=== PATIENT | female | born 2000 | race Caucasian/White ===

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

== ENCOUNTER 2024-04-08 10:55 | Emergency (ER) | payer BC, OTHER ==
[2024-04-08 11:02] VITALS: BP 110/72; PULSE 95; RESP 18; TEMP 98.5; BMI 30.7
[2024-04-08] MEDS ORDERED: ONDANSETRON 4 MG/2 ML VIAL ONE (11:24)
[2024-04-08] MEDS: SODIUM CHLORIDE 0.9% 500 ML INFUS.BAG IV ONE (11:46)
[2024-04-08] MEDS: ONDANSETRON 4 MG/2 ML VIAL IVPUSH ONE (11:46)
[2024-04-08 12:11] LABS: BASO % 0.3 % (0-2.0); HEMATOCRIT 35.5 % (32.4-45.2); HEMOGLOBIN 12.1 GM/dL (10.7-15.3); LYMPH % 4.9 % (8-40); MCH 27.7 pg (25.7-33.7); MCHC 34.2 g/dl (32.0-36.0); MEAN CELL VOLUME 81.1 fl (80-96); MONO % 4.1 % (3.8-10.2); NEUT % 90.7 % (42.8-82.8); PLATELET COUNT 312 10^3/uL (134-434); RBC 4.38 M/mm3 (3.60-5.2); WHITE BLOOD COUNT 15.7 K/mm3 (4.0-10.0)
[2024-04-08 12:28] LABS: POTASSIUM 4.5 mmol/L (3.5-5.1)
[2024-04-08 12:30] LABS: BLOOD UREA NITROGEN 12.6 mg/dL (7-18); CALCIUM 9.3 mg/dL (8.5-10.1)
[2024-04-08 12:33] LABS: CREATININE 0.8 mg/dL (0.55-1.3)
[2024-04-08 12:35] LABS: TOT PROT 7.7 g/dl (6.4-8.2)
[2024-04-08 13:51] LABS: INR 1.25 (0.83-1.09)
== END 2024-04-08 15:16 | disposition home or self-care (01) ==
LOC: JER 10:55
PROC: 3E033GC Introduction of Other Therapeutic Substance into Peripheral Vein, Percutaneous Approach (ICD-10-PCS; principal; 2024-04-08)
DX: A08.4 Viral intestinal infection, unspecified (principal); R11.2 Nausea with vomiting, unspecified; R55 Syncope and collapse; R42 Dizziness and giddiness
CPT/HCPCS: 36415; 71275-TC; 80053; 84703; 85025; 85379; 85610; 93005; 93010; 99284-25; Q9967